=== PATIENT | female | born 1940 | race Hispanic/Latino ===

== ENCOUNTER 2016-09-22 20:02 | Emergency (ER) | payer MEDICARE, MEDICAID ==
[~2016-09-22 20:02] MED LIST: AMLO5TAB2 PO; CARV3.122 PO; CLIN-78 PO; ERGO500029 PO; GLIM4TAB2 PO; HYDR25TA4 PO; IBUP-1827 PO; LISI40TA PO; METF10002 PO; ONDA4TAB12 PO; SIMV20TA4 PO
[2016-09-22 20:06] VITALS: BP 177/84; PULSE 72; RESP 16; O2SAT 99
[2016-09-22 21:24] LABS: BASOPHILS % (AUTO) 0.3 % (0-3); MONOCYTES % (AUTO) 8.7 % (4-12); Mean Corpuscular Hemoglobin 30.2 pg (27.0-35.0); Mean Corpuscular Volume 91.4 fL (81-100); NEUTROPHILS % (AUTO) 48.8 % (40-74); Platelet Count 272 bil/L (150-400)
[2016-09-22 21:42] LABS: TROPONIN T 0.01 ug/L (0.0-0.011)
--- NOTE | 2016-09-22 22:02 | ED.REPORT ---
HPI-Extremity Problem Lower Date of Service Sep 22, 2016 ED Provider: Junior Caballero MD A 75 year old female with a history of hypertension, hyperlipidemia, kidney stones, arthritis and diabetes presents to the ED complaining of bilateral leg swelling. The pt noticed the swelling two weeks ago. She also complains of intermittent left-sided chest pain. This pain has been present for approximately one month. She denies fever. Nursing Notes Stated Complaint: SWOLLEN FEET,LEGS HURT TO WALK Chief Complaint: Extremity Trauma Nursing Notes Reviewed: Yes Allergies: Coded Allergies: No Known Allergies (Verified Allergy, Unknown, 06/09/15) Scheduled Amlodipine (Amlodipine) 5 Mg Tablet 10 MG PO DAILY Carvedilol (Carvedilol) 3.125 Mg Tablet 3.125 MG PO BID Clindamycin (Clindamycin) 300 Mg Capsule 300 MG PO QID Ergocalciferol (Vitamin D2) (Vitamin D2) 50,000 Unit Capsule 50,000 UNIT PO Every Thursday Glimepiride (Glimepiride) 4 Mg Tablet 4 MG PO DAILY Hydrochlorothiazide (Hydrochlorothiazide) 25 Mg Tablet 25 MG PO DAILY Lisinopril (Lisinopril) 40 Mg Tablet 40 MG PO DAILY Metformin (Metformin) 1,000 Mg Tablet 1,000 MG PO BIDWM Ondansetron ODT (Ondansetron ODT) 4 Mg Tab.rapdis 4 MG PO Q6 Simvastatin (Simvastatin) 20 Mg Tablet 20 MG PO HS Scheduled PRN Ibuprofen (Ibuprofen) 600 Mg Tablet 600 MG PO TIDWM PRN PRN For Pain General Time Seen by MD: 21:30 Chief Complaint Other (Lower extremity swelling) Hx Obtained From: Patient Arrived By: Walk-in Onset Occurred: More than a week ago... Symptom Duration: Since onset Recent Healthcare: No recent hospitalization, Recent doctor visit Similar Sx Previous: No Past Medical History Past Medical History Anemia HTN Diabetes Hyperlipidemia Past Surgical History kidney stone removal Reports: Cholecystectomy Smoking History Never Smoker Social History Other Social History: Good social support Ambulatory Status Independent Review of Systems Constitutional: Denies: Fever Musculoskeletal: Reports: Extremity swelling (bilateral lower), Denies: Neck pain Skin: Denies Rash Complete sys rev & neg: except as marked. Respiratory: Denies: Non-productive cough, Shortness of breath Cardiovascular: Reports: Chest pain GI: Denies: Abdominal pain, Vomiting Physical Exam Initial Vital Signs Vital Signs (First) Date Time Temp Pulse Resp B/P Pulse Ox O2 Delivery O2 Flow Rate FiO2 09/22/16 20:06 36.9 72 16 177/84 99 Room Air Initial VS: Reviewed Lower Extremity / Pelvis / MS: Neurologic intact, Vascular intact 2+ pitting edema bilaterally Ankle / Foot: Atraumatic, Full range of motion General/Constitutional: Awake, Alert Respiratory / Chest: Breath sounds NL, Breath sounds = bilat, No respiratory distress reproducible chest tenderness, left anterior chest wall Cardiovascular: Heart rate NL, Regular rhythm, Heart sounds NL Skin: Atraumatic, Color NL, No rash, Warm, Dry Neurologic: Oriented X3, Speech NL, No motor deficits, No sensory deficits Head / Eyes: Atraumatic, Normocephalic, PERRL, EOMI ENT: Atraumatic, Airway patent, Mucous membranes moist Neck: Atraumatic, Supple, Full range of motion Abdomen: Atraumatic, Soft, Non-tender Back: Atraumatic, Full range of motion Upper Extremity / MS: Atraumatic, Full range of motion Psychiatric: Affect NL, Mood NL Interpretation & Diagnostics Interpretation & Diagnostics: CT Pulmonary Angiogram: CONCLUSION: No evidence of pulmonary embolism or thoracic aortic dissection. Lungs are clear. US DVT: CONCLUSION: No evidence of deep vein thrombosis of the lower extremities. Lab Results Interpretation Result Diagram: 09/22/16212009/22/162120 Test 09/22/16 21:21 09/22/16 21:25 09/22/16 23:17 White Blood Count 6.5th/mm3 (3.8-10.1) Red Blood Count 3.48mil/mm3 (3.90-5.20) Hemoglobin 10.5g/dL (12.0-15.6) Hematocrit 31.8% (35.0-46.0) Mean Corpuscular Volume 91.4fL (81-100) Mean Corpuscular Hemoglobin 30.2pg (27.0-35.0) Mean Corpuscular Hemoglobin Concent 33.0% (32.0-37.0) Red Cell Distribution Width 15.1% (12.3-15.4) Platelet Count 272bil/L (150-400) Neutrophils (%) (Auto) 48.8% (40-74) Lymphocytes (%) (Auto) 40.2% (14-46) Monocytes (%) (Auto) 8.7% (4-12) Eosinophils (%) (Auto) 2.0% (0-5) Basophils (%) (Auto) 0.3% (0-3) Sodium Level 141mEq/L (134-144) Potassium Level 4.0mEq/L (3.5-5.2) Chloride Level 105mEq/L (97-108) Carbon Dioxide Level 24mmol/L (18-29) Blood Urea Nitrogen 15mg/dL (8-27) Creatinine 0.70mg/dL (0.57-1.00) Estimat Glomerular Filtration Rate 117mL/min (>59) Glucose Level 133mg/dL (60-99) Calcium Level 9.0mg/dL (8.5-10.1) Total Bilirubin 0.2mg/dL (0.0-1.2) Aspartate Amino Transf (AST/SGOT) 19U/L (0-50) Alanine Aminotransferase (ALT/SGPT) 12U/L (0-32) Alkaline Phosphatase 105U/L (25-165) Troponin T 0.010ug/L (0.0-0.011) Pro-B-Type Natriuretic Peptide 173.3pg/mL (0-301) Total Protein 7.5g/dL (6.4-8.4) Albumin 3.6g/dL (3.4-5.0) Hold Landers Top Tube Received (Received) D-Dimer 1.41mg/L FEU (<0.50) Hold Urine Received (Received) ECG Interpretation ECG Interpretation: normal sinus rhythm with a rate of 63 low voltage, precordial leads abnormal R-wave progression, early transition Time: 21:13 Interpreted by: ED physician X-Ray Chest Interpretation Chest Xray Interpretation: no acute disease Interpretation / Wet Read by: Interpret - ED physician Re-Eval/Medical Decision Med Decision/Clinical Course 75-year-old female presenting complaining of bilateral lower extremity swelling for several weeks and intermittent chest pain for one month. Vital signs stable. D-dimer was elevated. Bilateral lower extremity ultrasounds were normal. CT angio chest no PE. There is no evidence of pneumonia. Her troponins are negative. Her BNP is normal. No clear cause for her lower extremity edema possible venous insufficiency. She had no chest pain while she was here. I see no indication for hospitalization this time. Patient we discharged home with times to follow up with primary doctor in 2-3 days. Return precautions given. Source of Hx: Old records Re-Evaluation/Progress : Time of Eval: 00:03 Patient Status: Condition improved Re-Evaluation/Progress Note: Pt rechecked, who is resting. The diagnosis and plan for discharge are discussed. The pt understands and agrees with the plan. All questions are addressed at this time. Counseled Regarding: Diagnosis, Lab results, Need for follow-up, When/why to return to ED Discharge & Departure Impression: Primary Impression: Chest pain, non-cardiac Additional Impression: Lower extremity edema Laterality: bilateral Qualified Code: R60.0 - Localized edema Disposition: Home Discharge Condition All VS Reviewed: Yes Condition: Stable Patient Instructions: Leg Edema (ED), Noncardiac Chest Pain (ED) Additional Instructions: Thank you for allowing us to be part of your care. There is no concerning cause for your symptoms found in the emergency department today. I recommend wearing compression stockings. Call your primary care physician to arrange a follow up appointment later this week. Return to the emergency department if you develop fever, nausea, vomiting, worsening chest pain, or any new or worsening symptoms. Zayra por permitirnos ser parte de ram atencin. No hay referente a causa de los sntomas encontrados en el Departamento de emergencia hoy. Te recomiendo usar medias de compresin. Llame a ram mdico de atencin primaria para concertar emerald yanni ms adelante esta semana de seguimiento. Volver al servicio de urgencias si presenta fiebre, nuseas, vmitos, empeoramiento de dolor en el pecho, o cualquier nueva o empeoramiento de los sntomas. Referrals: Cass Doherty MD (PCP) Scribe Attestation Portions of this note were transcribed by Shania Desouza. I, Dr. Caballero personally performed the history, physical exam and medical decision-making; I reviewed and confirmed the accuracy of the information in the transcribed note. copies to: Cass Doherty MD, Ben M MD Sep 22, 2016 22:02 SHANIA DESOUZA Sep 22, 2016 22:09
[2016-09-22 23:16] VITALS: BP 153/57; PULSE 63; RESP 18; O2SAT 98
[2016-09-23 00:36] VITALS: BP 152/59; PULSE 66; RESP 18; O2SAT 100
--- NOTE | 2016-09-23 07:57 | DRSVH ---
PROCEDURE: CT ANGIO CHEST PULMONARY EMBOLISM ([id number]) INDICATIONS: chest pain elevated ddimer TECHNIQUE: After the administration of intravenous contrast, 2 mm thick sections acquired from the pulmonary api [place] to the posterior costophrenic angles. 3-dimensional maximum intensity projection (MIP) coronal a nd sagittal reformats were then acquired through the thorax. For radiation dose reduction, the follo wing was used: automated exposure control, adjustment of mA and/or kV according to patient size. COMPARISON: [facility], CR, XR CHEST 1VW (PORTABLE), 09/22/2016, 22:09. FINDINGS: Image quality: Good Pulmonary arteries: Pulmonary arteries are normal in size, and demonstrate no intraluminal filling d efects to suggest central pulmonary embolism. Lungs and pleura: Lungs are clear. There are 2 small 3 mm nodules in the right middle lobe periphera lly. No pleural effusions or pneumothorax. Central and peripheral airways are patent. Mediastinum: Heart size is normal, without pericardial effusion. No mediastinal or hilar adenopathy . Thoracic aorta is normal in caliber and enhancement. Esophagus is normal in caliber, without hiat al hernia. Bones and chest wall: No suspicious bony lesions. Minimal rotoscoliosis convex to the right in the u pper thoracic spine. Diffuse spondylosis and some hypertrophic spurring is seen as well. Ribs and th oracic spine appear intact throughout. Thyroid gland is within normal limits. No axillary or suprac lavicular adenopathy. Abdomen: Visualized upper abdominal solid organs appear normal in the early arterial phase of enhanc ement. Gallbladder has been removed. IMPRESSION: 1. No evidence is seen for pulmonary embolus. 2. No acute change of the aorta suggests aneurysm or dissection. 3. No acute disease is seen in the lungs. 2 small 3 mm nodules are present in the right middle lobe. If the patient is low risk and no further followup is needed benefit high risk CT scan in one year is suggested. Dictated by: Silvano Mariee M.D. on 09/23/2016 at 7:50 this report corresponds to the findings of maría elena marin preliminary NSR report. Approved by: Silvano Mariee M.D. on 09/23/2016 at 7:55
--- NOTE | 2016-09-23 10:49 | DRSVH ---
PROCEDURE: X-RAY CHEST ONE VIEW, PORTABLE ([id number]) INDICATIONS: chest pain TECHNIQUE: One view of the chest was acquired. COMPARISON: [facility], , CHEST 1VW (PORTABLE), 06/11/2014, 15:45. FINDINGS: Surgical changes and devices: None. Lungs and pleura: No pleural effusions or pneumothorax. Lungs are clear. Mediastinum: Mediastinal contours appear normal. Heart size is normal. Bones and chest wall: No suspicious bony lesions. Overlying soft tissues appear unremarkable. IMPRESSION: No acute cardiopulmonary disease. Dictated by: Jovi Garcia [facility] Interpreted: Silvano Mariee MD on 09/23/2016 at 8:44 Approved by: Silvano Mariee M.D. on 09/23/2016 at 10:46
--- NOTE | 2016-09-23 10:51 | DRSVH ---
PROCEDURE: US VENOUS LEG DUPLEX BILATERAL INDICATIONS: bilateral leg swelling r/o dvt TECHNIQUE: Real-time imaging, as well as color and pulse Doppler interrogation, were performed of the deep veins of both legs from the inguinal ligament to the popliteal fossa. COMPARISON: None. FINDINGS: The deep veins are normally compressible, and free of intraluminal thrombus. Color and pu lse Doppler demonstrate normal phasic intravascular flow. There is normal augmentation response to d istal compression maneuver. IMPRESSION: No deep venous thrombosis identified within either the left or right lower extremities. Dictated by: Jovi Garcia [facility] Interpreted: Silvano Mariee MD on 09/23/2016 at 8:48 Approved by: Silvano Mariee M.D. on 09/23/2016 at 10:47
== END 2016-09-23 00:38 | disposition home or self-care (01) ==
LOC: SED 20:02
DX: R07.89 Other chest pain (principal); R60.0 Localized edema; I10 Essential (primary) hypertension; E78.5 Hyperlipidemia, unspecified; E11.9 Type 2 diabetes mellitus without complications; Z87.448 Personal history of other diseases of urinary system; Z90.49 Acquired absence of other specified parts of digestive tract; Z79.84 Long term (current) use of oral hypoglycemic drugs
CPT/HCPCS: 36415; 71010; 71275; 80053; 83880; 84484; 85025; 85378; 93005; 93970; 96374; 99285; J1885; Q9967